=== PATIENT | female | born 1995 | race Caucasian/White ===

== ENCOUNTER 2016-07-09 03:04 | Emergency (ER) | payer BC, OTHER ==
[2016-07-09 03:15] VITALS: TEMP 98.8; O2SAT 97
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
[2016-07-09] MEDS ORDERED: ONDANSETRON DISINTEGRATING 4 MG TAB PO ONE (06:32)
[2016-07-09] MEDS ORDERED: AZITHROMYCIN 250 MG TAB PO ONE (06:32)
[2016-07-09] MEDS ORDERED: CEFTRIAXONE IM 350 MG/ML SYRINGE IM ONE (06:32)
[2016-07-09] MEDS ORDERED: ONDANSETRON DISINTEGRATING 4 MG TAB ONE (06:47)
[2016-07-09 07:29] VITALS: BP 135/80; PULSE 80; RESP 14
== END 2016-07-09 07:29 | disposition home or self-care (01) ==
LOC: EEVIPCON 03:04
DX: T74.21XA Adult sexual abuse, confirmed, initial encounter (principal); Y07.9 Unspecified perpetrator of maltreatment and neglect
CPT/HCPCS: J0696

== ENCOUNTER 2016-07-28 02:37 | Emergency (ER) | payer BC ==
[2016-07-28 02:49] VITALS: RESP 18; TEMP 99.1
[2016-07-28 03:10] LABS: % IMMATURE GRANULYOCYTES 0.4 % (0.0-1.1); ABSOLUTE IMMATURE GRANULOCYTES 0.03 10^3/uL (0.00-0.10); ADD DIFF? NO; ADD MORPH? NO; ADD SCAN? NO; ATYPICAL LYMPHOCYTE FLAG 0 (0-99); FRAGMENT RBC FLAG 0 (0-99); HEMATOCRIT 44.9 % (38.0-47.0); HEMOGLOBIN 15.6 g/dL (12.6-16.3); LEFT SHIFT FLG 10 (0-99); LIPEMIA HEMOLYSIS FLAG 90 (0-99); MEAN CELL HEMOGLOBIN 33.3 pg (27.9-34.1); MEAN CELL HEMOGLOBIN CONCENTR. 34.7 g/dL (32.4-36.7); MEAN CELL VOLUME 95.9 fL (81.5-99.8); MEAN PLATELET VOLUME 9.8 fL (8.7-11.7); PLATELET CLUMPS FLAG 10 (0-99); PLATELET COUNT 239 10^3/uL (150-400); RED BLOOD CELL COUNT 4.68 10^6/uL (4.18-5.33)
[2016-07-28 03:23] LABS: ANION GAP 15 mEq/L (8-16); CARBON DIOXIDE 17 mEq/l (22-31); CHLORIDE 113 mEq/L (97-110); CREATININE 0.7 mg/dL (0.6-1.0); ETHANOL SERUM 166 mg/dL (0-10); GLOMERULAR FILTRATION RATE > 60; GLUCOSE 96 mg/dL (70-100); SODIUM 145 mEq/L (134-144)
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
[2016-07-28 08:02] VITALS: BP 118/76; PULSE 76; O2SAT 97
== END 2016-07-28 07:50 | disposition home or self-care (01) ==
DX: S61.512A Laceration without foreign body of left wrist, initial encounter (principal); F10.120 Alcohol abuse with intoxication, uncomplicated; X78.9XXA Intentional self-harm by unspecified sharp object, initial encounter
CPT/HCPCS: 80305; G0480